=== PATIENT | female | born 1985 | race African-American/Black ===

== ENCOUNTER 2016-12-15 11:07 | Emergency (ER) | payer MEDICAID ==
[~2016-12-15] VITALS: Ht 165.1 cm; Wt 63.6 kg
[2016-12-15 11:12] VITALS: BP 148/89; PULSE 66; TEMP 98
[2016-12-15] MEDS ORDERED: DIFLUCAN150 MG PO (11:39)
== END 2016-12-15 11:43 | disposition home or self-care (01) ==
LOC: COL.ER 11:07
DX: B37.3 Candidiasis of vulva and vagina (principal)